=== PATIENT | male | born 1990 | race Caucasian/White ===

== ENCOUNTER 2024-08-15 15:42 | Emergency (ER) | payer MEDICAID, SELFPAY ==
[2024-08-15 15:57] VITALS: BP 132/88; PULSE 90; RESP 20; TEMP 36.9; O2SAT 98; BMI 48.7
--- NOTE | 2024-08-15 16:04 | ECG_ITS ---
[employer] Test Date: 2024-08-15 Pat Name: Helio Grissom Department: Room: Gender: Male [employer]: : 1990 Requested By: Brayan Mckeon Order Number: [id number] Gasca MD: Leonardo Gaines M.D. Measurements Intervals Boyd Rate: 82 P: 46 LA: 129 QRS: -8 QRSD: 103 T: -6 QT: 353 QTc: 414 Interpretive Statements SINUS RHYTHM MODERATE VOLTAGE CRITERIA FOR LVH, CONSIDER NORMAL VARIANT [MEETS CRITERIA IN ONE OF: R(aVL), S(V1), R(V5), R(V5/V6)+S(V1)] No previous ECG available for comparison Electronically Signed On 08-15-2024 19:39:04 CDT by Leonardo Gaines M.D. [id number]
--- NOTE | 2024-08-15 17:05 | XRR_ITS ---
PROCEDURE INFORMATION: Exam: XR Chest Exam date and time: 08/15/2024 5:51 PM Age: 33 years old Clinical indication: Pain; Chest pressure; Additional info: Chest pain TECHNIQUE: Imaging protocol: Radiologic exam of the chest. Views: 1 view. COMPARISON: No relevant prior studies available. FINDINGS: Lungs: No focal consolidation. Pleural spaces: No evidence of pneumothorax. No evidence of pleural effusion. Heart/Mediastinum: Cardiomediastinal silhouette is within normal limits. Bones/joints: No evidence of acute osseous abnormality. XR/XR chest 1V portable [id number] IMPRESSION: 1. No acute cardiopulmonary abnormality.
[2024-08-15 17:12] VITALS: BP 120/67; PULSE 81; O2SAT 98
[2024-08-15 17:23] LABS: Basophils % 0.5 %; Eosinophils # 0.6 10^3/uL (0.0-0.8); Eosinophils % 8.2 %; Hematocrit 38.5 % (37-53); Lymphocytes % 25.9 %; Mean Corpuscular HGB Conc 31.2 g/dL (30-55); Mean Corpuscular Hemoglobin 28.5 pg (27-33); Mean Corpuscular Volume 91.4 fl (82-101); Mean Platelet Volume 11.2 fL (7.4-10.4); Monocytes # 0.6 10^3/uL (0.2-0.9); Monocytes % 7.6 %; Neutrophils # 4.36 10^3/uL (1.8-7.7); Neutrophils % 57.4 %; Nucleated Red Blood Cells % 0 %; Platelet Count 230 10^3/cmm (157-399); Red Blood Count 4.21 10^6/uL (3.85-5.65); Red Cell Distribution Width 13.6 % (12.1-15.1)
--- NOTE | 2024-08-15 17:29 | W.ED.CHESTPA ---
HPI - Chest Pain General: Chief Complaint: Chest Pain Stated Complaint: CP/SOB Time Seen by Provider: 08/15/24 17:05 History of Present Illness: 33-year-old man with a history of morbid obesity and he says multiple heart attacks in the past who presents emergency room with chest pain and shortness of breath. He says he was at a specialist today and was sent to the emergency room. He says he been having some chest tightness. Shortness of breath. Feels like he is swelling. He tells me he had a angiogram about a month ago that showed nonocclusive coronary disease and he did not require stents. He did take some nitro today. No altered mental status. No fevers. No cough. Related Data Allergies Allergy/AdvReac Type Severity Reaction Status Date / Time lithium Allergy ADR-Seizure Verified 08/15/24 16:14 mushroom Allergy ALGY-Anaphy Verified 08/15/24 16:13 laxis red dye Allergy ADR-Diarrhe Verified 08/15/24 16:13 a shellfish derived Allergy ALGY-Anaphy Verified 08/15/24 16:13 laxis Review of Systems Narrative: Constitutional symptoms: Negative except as documented in HPI. Skin symptoms: Negative except as documented in HPI. Eye symptoms: Negative except as documented in HPI. ENMT symptoms: Negative except as documented in HPI. Respiratory symptoms: Negative except as documented in HPI. Cardiovascular symptoms: Negative except as documented in HPI. Gastrointestinal symptoms: Negative except as documented in HPI. Genitourinary symptoms: Negative except as documented in HPI. Musculoskeletal symptoms: Negative except as documented in HPI. Neurologic symptoms: Negative except as documented in HPI. Psychiatric symptoms: Negative except as documented in HPI. Endocrine symptoms: Negative except as documented in HPI. Physical Exam Narrative: EXAM NARRATIVE: General: Alert, no acute distress. Skin: Warm, dry. Head: Normocephalic, atraumatic. Neck: Supple, trachea midline. Eye: Extraocular movements are intact. Ears, nose, mouth and throat: mucosa moist. Cardiovascular: Regular, Normal peripheral perfusion. Respiratory: Lungs are clear to auscultation, respirations are non-labored, breath sounds are equal, Symmetrical chest wall expansion. Gastrointestinal: Soft, Nontender, Non distended Musculoskeletal: Normal ROM, no deformity. Neurological: Alert and oriented, No focal neurological deficit observed. Psychiatric: Cooperative, appropriate mood & affect. Course Vital Signs: Vital signs: Vital Signs Temperature 98.5 F 08/15/24 15:57 Pulse Rate 90 08/15/24 15:57 Respiratory Rate 20 H 08/15/24 15:57 Blood Pressure 132/88 08/15/24 15:57 Pulse Oximetry 98 08/15/24 15:57 Oxygen Delivery Me thod Room Air 08/15/24 15:57 MDM - Chest Pain Medical Decision Making Differential diagnosis for patient with chest pain includes but is not limited to and based on the above HPI, review of systems and physical exam: Pneumonia. unstable angina. angina. Acute coronary syndrome / SD. Pulmonary embolism. Costochondritis / musculoskeletal. Pleurisy. Pericarditis. Esophageal spasm. Pancreatis. Cholecystitis. Orders placed to evaluate differential diagnosis based on the above differential, HPI and physical exam EKG: Time 1604. Rate 82. LVH. Normal sinus rhythm, No ST-T changes, no ectopy, normal [place] & QRS intervals, This was reviewed and interpreted by myself the ER physician at 1608 Lab Review: Laboratory results were reviewed and interpreted by myself the emergency room physician. Lab work is unremarkable. No leukocytosis. No anemia. No renal failure. Cardiac markers negative proBNP is negative. Liver enzymes are not elevated. Chest x-ray: No acute process. No infiltrate. No pneumothorax. This was reviewed and interpreted by myself the emergency room physician. I also reviewed the radiology report. I reviewed the patient's medical record. Reexamination: Patient remained stable. No increased work of breathing. No altered mental status. No focal motor deficits. Assessment and plan: Noncardiac chest pain - Discharged home - Discussed plan with patient. Answered any questions. - Evaluation and treatment of this problem were appropriate in the emergency setting. Lab Data 08/15/24 17:13 08/15/24 17:13 Laboratory Results WBC 7.60 10^3/uL (3.29-11.43) 08/15/24 17:13 RBC 4.21 10^6/uL (3.85-5.65) 08/15/24 17:13 Hgb 12.00 g/dL (11.27-16.99) 08/15/24 17:13 Hct 38.5 % (37-53) 08/15/24 17:13 MCV 91.4 fl (82-101) 08/15/24 17:13 MCH 28.5 pg (27-33) 08/15/24 17:13 MCHC 31.2 g/dL (30-55) 08/15/24 17:13 RDW 13.6 % (12.1-15.1) 08/15/24 17:13 Plt Count 230 10^3/cmm (157-399) 08/15/24 17:13 MPV 11.2 fL (7.4-10.4) H 08/15/24 17:13 Neut % (Auto) 57.4 % 08/15/24 17:13 Lymph % (Auto) 25.9 % 08/15/24 17:13 Cotton % (Auto) 7.6 % 08/15/24 17:13 Eos % (Auto) 8.2 % 08/15/24 17:13 Baso % (Auto) 0.5 % 08/15/24 17:13 Neut # (Auto) 4.36 10^3/uL (1.8-7.7) 08/15/24 17:13 Lymph # (Auto) 2.0 10^3/uL (0.8-4.8) 08/15/24 17:13 Cotton # (Auto) 0.6 10^3/uL (0.2-0.9) 08/15/24 17:13 Eos # (Auto) 0.6 10^3/uL (0.0-0.8) 08/15/24 17:13 Baso # (Auto) 0.0 10^3/uL (0.0-0.1) 08/15/24 17:13 Nucleated RBC % (auto) 0 % 08/15/24 17:13 Nucleated RBCs # 0.0 /100WBC 08/15/24 17:13 Sodium 139 mmol/L (136-145) 08/15/24 17:13 Potassium 4.4 mmol/L (3.5-5.1) 08/15/24 17:13 Chloride 104 mmol/L (98-107) 08/15/24 17:13 Carbon Dioxide 22 mmol/L (22-29) 08/15/24 17:13 Anion Gap 17.4 (5-19) 08/15/24 17:13 BUN 17 mg/dL (6-20) 08/15/24 17:13 Creatinine 0.7 mg/dL (0.7-1.2) 08/15/24 17:13 GFR Calculation 131.5 mL/min (90-130) H 08/15/24 17:13 Glucose 103 mg/dL (65-115) 08/15/24 17:13 Calculated Osmolality 290 mOsm/kg (285-295) 08/15/24 17:13 Calcium 9.4 mg/dL (8.5-10.5) 08/15/24 17:13 Total Bilirubin 0.2 mg/dL (0.15-1.2) 08/15/24 17:13 AST 35 U/L (0-40) 08/15/24 17:13 ALT 62 U/L (0-41) H 08/15/24 17:13 Alkaline Phosphatase 24 U/L (40-130) L 08/15/24 17:13 Troponin T Baseline < 6 ng/L (0-15) 08/15/24 17:13 C-Reactive Protein 6.3 mg/L (0.0-4.9) H 08/15/24 17:13 NT-Pro-B Natriuret Pep < 36 pg/mL (0-125) 08/15/24 17:13 Total Protein 7.2 g/dL (6.6-8.7) 08/15/24 17:13 Albumin 4.4 g/dL (3.5-5.2) 08/15/24 17:13 Globulin 2.8 g/dL (1.3-4.6) 08/15/24 17:13 All radiology interpretation(s) finalized by discharge Discharge Plan Discharge Patient Disposition: Home Clinical Impression: Non-cardiac chest pain Condition: Stable Discharge Orders: Discharge ED (Routine); Ordered 08/15/24 Ordered By: Romina Hyatt Discharge Diet: Usual diet Discharge Activity: Increase activity as tolerated Patient Instructions: Noncardiac Chest Pain (ED), Opioid Safety, Pain Management Activity Restrictions/Additional Instructions: Thank you for choosing [facility] for your healthcare needs today. You have been screened and evaluated and felt safe for discharge. Health conditions do change or evolve sometimes and as such it is important that you follow up with your Primary Doctor to be re checked, 3-5 days is a general good time frame for follow up. You are always welcome to return to the ED for re assessment if your symptoms are worsening or you have new concerns Print Language: Panamanian Coding Level of Care Code ED [employer] Assayer for Chiqui Grider
[2024-08-15] MEDS: aspirin 81 mg Chew Tablet 324 MG PO (17:37)
[2024-08-15 17:46] LABS: Troponin(5th) Baseline < 6 ng/L (0-15)
[2024-08-15 17:54] LABS: Alanine Aminotransferase 62 U/L (0-41); Albumin Level 4.4 g/dL (3.5-5.2); Alkaline Phosphatase 24 U/L (40-130); Anion Gap 17.4 (5-19); Aspartate Amino Transferase 35 U/L (0-40); Blood Urea Nitrogen 17 mg/dL (6-20); C Reactive Protein 6.3 mg/L (0.0-4.9); Calcium 9.4 mg/dL (8.5-10.5); Carbon Dioxide 22 mmol/L (22-29); Chloride 104 mmol/L (98-107); Creatinine Clr Calc Pharmacy 228.1396; Globulin 2.8 g/dL (1.3-4.6); Glomerular Filtration Rate 131.5 mL/min (90-130); Glucose 103 mg/dL (65-115); NT Pro B Type Natriuretic Pept < 36 pg/mL (0-125); Osmolality Calculated 290 mOsm/kg (285-295); Potassium 4.4 mmol/L (3.5-5.1); Sodium 139 mmol/L (136-145); Total Bilirubin 0.2 mg/dL (0.15-1.2); Total Protein 7.2 g/dL (6.6-8.7)
[2024-08-15 18:28] VITALS: BP 107/62; PULSE 60; O2SAT 97
[2024-08-15 18:46] VITALS: BP 107/58; PULSE 71; O2SAT 98
== END 2024-08-15 18:47 | disposition home or self-care (01) ==
PROVIDERS: Emergency Provider Emergency Medicine
DX: R07.89 Other chest pain (principal)
CPT/HCPCS: 36415; 71045; 80053; 83880; 84484; 85025; 86140; 93005; 99285; J9999